=== PATIENT | male | born 1975 | race Caucasian/White ===

== ENCOUNTER 2018-12-30 09:07 | Outpatient (CLI) | payer OTHER ==
--- NOTE | 2018-12-30 11:39 | CT ---
CT ABDOMEN AND PELVIS WITH IV CONTRAST: DATE: 12/30/2018. PROVIDED CLINICAL HISTORY: Generalized abdominal pain and abnormal weight loss. FINDINGS: Visualized lung bases are free of significant opacity. There is a 2.1 cm cystic structure at the inferior pole of the right kidney laterally with numerous i nternal calcifications measuring 2-3 mm. There is renal cortical volume loss immediately adjacent to this. The solid abdominal organs demonstrate an otherwise unremarkable CT appearance. There is no bowel dilatation, inflammatory fat stranding, free fluid, or lymph node enlargement appar ent. Changes of abdominal wall mesh hernia repair are demonstrated. Sigmoid colonic diverticulosis without CT evidence for diverticulitis. The osseous structures demonstrate no concerning osteoblastic or osteolytic lesions. IMPRESSION: 1. 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 Urologic consu ltation is recommended. 2. Sigmoid colonic diverticulosis without CT evidence for diverticulitis. POS: [facility]
[2018-12-30] MEDS ORDERED: ISOVUE-370 76%-LOCM 1 ML ONE (12:46)
== END 2018-12-30 09:08 | disposition home or self-care (01) ==
LOC: BICCT 09:07
PROVIDERS: ATTEND Family Medicine
DX: R10.84 Generalized abdominal pain (principal); R63.4 Abnormal weight loss; K57.30 Diverticulosis of large intestine without perforation or abscess without bleeding
CPT/HCPCS: 74177

== ENCOUNTER 2019-05-04 08:15 | Outpatient (CLI) | payer OTHER ==
--- NOTE | 2019-05-04 10:01 | MRI ---
MRI THORACIC SPINE WITHOUT CONTRAST: HISTORY: Mid back pain with a water balloon jiggling feeling inside the spine. COMPARISON: None. FINDINGS: Appropriate T1 marrow signal intensity of the thoracic vertebrae. Thoracic spine vertebral body heigh t is maintained. No fracture. No significant STIR hyperintensity to suggest vertebral body edema or ligamentous injury. The visualized mediastinum, lung parenchyma and paraspinal soft tissues have appropriate signal inten sity. The visualized solid organs have appropriate signal intensity. The thoracic cord has a normal size and signal intensity. No cord malacia. No cord expansion. T1-T2: No significant central canal stenosis or significant neural foraminal narrowing. T2-T3, T3-T4, T4-T5, T5-T6: No significant central canal stenosis or significant neural foraminal elvis rowing. T6-T7: Minimal broad-based disc bulge without significant central canal stenosis. Bilaterally the sharyn ral foramina are patent. T7-T8: Broad-based disc bulge abuts the thecal sac. Small left paracentral component does contact the left hemicord with mild cord deformity. Mild central canal stenosis. No cord hyperintensity. Bilaterally, the neural foramina are patent. T8-T9: Small left paracentral disc bulge contacts the thecal sac. No significant central canal stenos is. Bilaterally, the neural foramina are patent. T9-T10 through T12-L1: No significant central canal stenosis or significant neural foraminal narrowin g IMPRESSION: Degenerative changes of the thoracic spine, as described above. Transcribed Date/Time: 05/04/2019 10:10 AM
== END 2019-05-04 08:16 | disposition home or self-care (01) ==
LOC: BICMRI 08:15
PROVIDERS: ATTEND Family Medicine
DX: R07.9 Chest pain, unspecified (principal); M47.814 Spondylosis without myelopathy or radiculopathy, thoracic region
CPT/HCPCS: 72146

== ENCOUNTER 2020-08-23 08:24 | Outpatient (CLI) | payer OTHER | END 2020-08-23 08:25 | disposition home or self-care (01) | LOC: CT 08:24 | PROVIDERS: ATTEND Family Medicine | DX: R55 Syncope and collapse (principal) | CPT/HCPCS: 70450 ==

== ENCOUNTER 2020-08-23 17:20 | Inpatient (IN) | payer SELFPAY ==
[2020-08-23] MEDS ORDERED: Loperamide HCl 2 MG CAP PO PRN (19:37)
[2020-08-23] MEDS ORDERED: Zolpidem Tartrate 5 MG TAB PO PRN (19:37)
[2020-08-23] MEDS ORDERED: Guaifenesin DM 100-10/5 ML UDCUP PO PRN (19:37)
[2020-08-23] MEDS ORDERED: Ondansetron ODT 4 MG TAB PO PRN (19:37)
[2020-08-23] MEDS ORDERED: HYDROcodone/Acetaminophen 5/325 mg Tablet PO PRN (19:37)
[2020-08-23] MEDS ORDERED: Ondansetron PF 4 MG/2 ML Vial IVP PRN (19:37)
[2020-08-23] MEDS ORDERED: Bisacodyl 10 MG SUPP PR PRN (19:37)
[2020-08-23] MEDS ORDERED: Senokot S 8.6-50 MG TAB PO PRN (19:37)
[2020-08-23] MEDS ORDERED: Acetaminophen 325 MG TAB PO PRN (19:37)
[2020-08-23] MEDS ORDERED: Calcium Carbonate 500 MG ChewTAB PO PRN (19:37)
[2020-08-23 20:21] LABS: #Basophils 0.1 thou/uL (0.0-0.2); #Eosinphils 0.1 thou/uL (0.0-0.7); #Lymphocytes 2.5 thou/uL (1.20-3.40); #Monocytes 0.8 thou/uL (0.11-0.59); #Neutrophils 9.2 thou/uL (1.40-6.50); %Basophils 0.5 % (0.0-1.0); %Eosinophils 0.6 % (0.0-10.0); %Lymphocytes 19.8 % (21.0-51.0); %Neutrophils 73.1 % (42.0-75.0); Hemoglobin 15.3 g/dL (14.0-18.0); Mean Corpuscular HGB CONC 33.4 g/dL (32.0-36.0); Mean Corpuscular Hemoglobin 31.7 pg (27.0-31.0); Mean Corpuscular Volume 94.9 fL (78.0-98.0); Mean Platelet Volume 7.8 fL (7.4-10.4); Platelet Count 243 thou/uL (130-400); RBC Distribution Width 11.2 % (11.5-14.5); Red Blood Cell (RBC) Count 4.83 mill/uL (4.70-6.10); White Blood Cell (WBC) Count 12.6 thou/uL (4.8-10.8)
[2020-08-23 20:29] LABS: INR-International Normal Ratio 1.1; PTT 35.9 sec (22.9-36.1); Prothrombin Time 13.9 sec (12.0-14.7)
[2020-08-23 20:44] LABS: ALT (SGPT) 17 U/L (8-55); AST (SGOT) 14 U/L (5-34); Albumin 4.2 g/dL (3.5-5.0); Alkaline Phosphatase 68 U/L (40-110); Anion Gap 13 mmol/L (10-20); BUN (Urea Nitrogen) 17 mg/dL (8.9-20.6); Bilirubin, Total 0.6 mg/dL (0.2-1.2); Calc. Creatinine Clearance 0 mL/min (70-130); Calcium 9.4 mg/dL (7.8-10.44); Carbon Dioxide 27 mmol/L (22-29); Chloride 103 mmol/L (98-107); Globulin 3.1 g/dL (2.4-3.5); Glucose 93 mg/dL (70-105); Protein, Total 7.3 g/dL (6.0-8.3); Sodium 139 mmol/L (136-145)
[2020-08-23] MEDS ORDERED: Famotidine 20 MG TAB PO SCH (21:00)
[2020-08-23 22:02] VITALS: BMI 21.2
[2020-08-24] MEDS ORDERED: Famotidine 20 MG TAB ONE (00:42)
[2020-08-24 02:03] LABS: SARS-CoV-2 NAA Rapid Test Not Detected (NotDetected)
== END 2020-08-24 08:35 | disposition short-term general hospital (02) | DRG 644 ==
LOC: ERS 17:20 → ERHOLD 19:37
PROVIDERS: ADMIT Internal Medicine; ATTEND Family Medicine
DX: D49.7 Neoplasm of unspecified behavior of endocrine glands and other parts of nervous system (principal); G91.1 Obstructive hydrocephalus
CPT/HCPCS: 0240U; 36415; 80053; 82105; 84702; 85025; 85610; 85730; 87635; U0003; U0005

== ENCOUNTER 2021-02-10 15:32 | Emergency (ER) | payer SELFPAY ==
[2021-02-10 16:21] LABS: #Basophils 0.1 thou/uL (0.0-0.2); #Eosinphils 0.1 thou/uL (0.0-0.7); #Lymphocytes 2.4 thou/uL (1.20-3.40); #Monocytes 0.6 thou/uL (0.11-0.59); #Neutrophils 8.2 thou/uL (1.40-6.50); %Basophils 0.4 % (0.0-1.0); %Eosinophils 0.5 % (0.0-10.0); %Lymphocytes 20.9 % (21.0-51.0); %Monocytes 5.4 % (0.0-10.0); %Neutrophils 72.8 % (42.0-75.0); Hemoglobin 15.7 g/dL (14.0-18.0); Mean Corpuscular HGB CONC 34.5 g/dL (32.0-36.0); Mean Corpuscular Hemoglobin 32.4 pg (27.0-31.0); Mean Corpuscular Volume 93.8 fL (78.0-98.0); Mean Platelet Volume 8.2 fL (7.4-10.4); Platelet Count 233 thou/uL (130-400); RBC Distribution Width 11.6 % (11.5-14.5); Red Blood Cell (RBC) Count 4.86 mill/uL (4.70-6.10); White Blood Cell (WBC) Count 11.3 thou/uL (4.8-10.8)
[2021-02-10 16:29] LABS: INR-International Normal Ratio 0.9; PTT 33.6 sec (22.9-36.1); Prothrombin Time 12.6 sec (12.0-14.7)
[2021-02-10 16:36] LABS: ALT (SGPT) 18 U/L (8-55); AST (SGOT) 17 U/L (5-34); Albumin 4.5 g/dL (3.5-5.0); Alkaline Phosphatase 65 U/L (40-110); Anion Gap 18 mmol/L (10-20); BUN (Urea Nitrogen) 22 mg/dL (8.9-20.6); Bilirubin, Total 0.4 mg/dL (0.2-1.2); Calc. Creatinine Clearance 0 mL/min (70-130); Calcium 9.5 mg/dL (7.8-10.44); Carbon Dioxide 21 mmol/L (22-29); Chloride 104 mmol/L (98-107); Globulin 2.9 g/dL (2.4-3.5); Glucose 108 mg/dL (70-105); Potassium 4.1 mmol/L (3.5-5.1); Protein, Total 7.4 g/dL (6.0-8.3); Sodium 139 mmol/L (136-145)
== END 2021-02-10 18:24 | disposition home or self-care (01) ==
LOC: ERS 15:32
DX: R56.9 Unspecified convulsions (principal); D49.6 Neoplasm of unspecified behavior of brain; Z87.891 Personal history of nicotine dependence
CPT/HCPCS: 36415; 70450; 80053; 85025; 85610; 85730; 93005

== ENCOUNTER 2021-03-04 13:28 | Inpatient (IN) | payer SELFPAY ==
[2021-03-04] MEDS ORDERED: Lorazepam 2 MG/ML VIAL ONE (13:41)
[2021-03-04 14:48] LABS: #Lymphocytes 0.9 thou/uL (1.20-3.40); #Monocytes 0.4 thou/uL (0.11-0.59); #Neutrophils 6.1 thou/uL (1.40-6.50); %Basophils 0.4 % (0.0-1.0); %Eosinophils 0.6 % (0.0-10.0); %Lymphocytes 12.3 % (21.0-51.0); %Monocytes 4.7 % (0.0-10.0); %Neutrophils 82.1 % (42.0-75.0); Hemoglobin 15.2 g/dL (14.0-18.0); Mean Corpuscular HGB CONC 33.9 g/dL (32.0-36.0); Mean Corpuscular Hemoglobin 31.8 pg (27.0-31.0); Mean Corpuscular Volume 93.8 fL (78.0-98.0); Mean Platelet Volume 7.6 fL (7.4-10.4); Platelet Count 245 thou/uL (130-400); RBC Distribution Width 11.6 % (11.5-14.5); Red Blood Cell (RBC) Count 4.77 mill/uL (4.70-6.10); White Blood Cell (WBC) Count 7.4 thou/uL (4.8-10.8)
[2021-03-04 16:07] LABS: ALT (SGPT) 13 U/L (8-55); AST (SGOT) 13 U/L (5-34); Albumin 4.4 g/dL (3.5-5.0); Alkaline Phosphatase 84 U/L (40-110); Anion Gap 14 mmol/L (10-20); BUN (Urea Nitrogen) 13 mg/dL (8.9-20.6); Bilirubin, Total 0.6 mg/dL (0.2-1.2); Calc. Creatinine Clearance 0 mL/min (70-130); Calcium 9.7 mg/dL (7.8-10.44); Carbon Dioxide 26 mmol/L (22-29); Chloride 105 mmol/L (98-107); Globulin 3.1 g/dL (2.4-3.5); Glucose 103 mg/dL (70-105); Potassium 3.8 mmol/L (3.5-5.1); Protein, Total 7.5 g/dL (6.0-8.3); Sodium 141 mmol/L (136-145)
[2021-03-04] MEDS ORDERED: Acetaminophen 500 MG TAB ONE (16:38)
[2021-03-04] MEDS ORDERED: Morphine 4 MG/ML VIAL ONE (18:55)
[2021-03-04] MEDS ORDERED: Dexamethasone 10 MG/ML VIAL ONE ×2 (21:30→21:52)
[2021-03-04] MEDS ORDERED: Ondansetron PF 4 MG/2 ML Vial IVP PRN (21:45)
[2021-03-04] MEDS ORDERED: Acetaminophen 325 MG TAB PO PRN (21:45)
[2021-03-04] MEDS ORDERED: HYDROcodone/Acetaminophen 10/325 mg Tablet ONE (21:50)
[2021-03-04] MEDS ORDERED: levETIRAcetam 500 MG TAB PO SCH ×2 (22:00→22:45)
[2021-03-04] MEDS ORDERED: levETIRAcetam in NS 1,500 MG in Premix Bag 1 BAG IVPB SCH (22:00)
[2021-03-05 03:17] LABS: SARS-CoV-2 NAA Rapid Test Not Detected (NotDetected)
[2021-03-05 05:54] LABS: #Lymphocytes 1.1 thou/uL (1.20-3.40); #Monocytes 0.1 thou/uL (0.11-0.59); #Neutrophils 3.7 thou/uL (1.40-6.50); %Basophils 0.5 % (0.0-1.0); %Eosinophils 0.1 % (0.0-10.0); %Lymphocytes 21.9 % (21.0-51.0); %Monocytes 1.9 % (0.0-10.0); %Neutrophils 75.7 % (42.0-75.0); Hemoglobin 14.7 g/dL (14.0-18.0); Mean Corpuscular HGB CONC 33.9 g/dL (32.0-36.0); Mean Corpuscular Hemoglobin 31.8 pg (27.0-31.0); Mean Corpuscular Volume 93.8 fL (78.0-98.0); Mean Platelet Volume 7.4 fL (7.4-10.4); Platelet Count 247 thou/uL (130-400); RBC Distribution Width 11.5 % (11.5-14.5); Red Blood Cell (RBC) Count 4.62 mill/uL (4.70-6.10); White Blood Cell (WBC) Count 4.8 thou/uL (4.8-10.8)
[2021-03-05 06:19] LABS: Anion Gap 12 mmol/L (10-20); BUN (Urea Nitrogen) 15 mg/dL (8.9-20.6); Calc. Creatinine Clearance 134 mL/min (70-130); Calcium 9.9 mg/dL (7.8-10.44); Carbon Dioxide 28 mmol/L (22-29); Chloride 106 mmol/L (98-107); Glucose 122 mg/dL (70-105); Potassium 4.7 mmol/L (3.5-5.1); Sodium 141 mmol/L (136-145)
[2021-03-05] MEDS ORDERED: Dexamethasone 4 mg/ml Vial ONE (08:34)
[2021-03-05] MEDS: Dexamethasone 4 mg/ml Vial SLOW IVP SCH ×2 (08:46→19:27)
[2021-03-05] MEDS: HYDROcodone/Acetaminophen 7.5/325 mg Tablet PO PRN (08:46)
[2021-03-05] MEDS: levETIRAcetam 500 MG TAB PO SCH ×2 (11:08→20:43)
[2021-03-05 15:46] VITALS: BMI 21.7
[2021-03-05] MEDS ORDERED: Dexamethasone 4 mg/ml Vial SLOW IVP SCH (23:59)
[2021-03-06] MEDS: Dexamethasone 4 mg/ml Vial SLOW IVP SCH ×4 (04:36→21:07)
[2021-03-06 05:06] LABS: #Monocytes 0.2 thou/uL (0.11-0.59); #Neutrophils 8.1 thou/uL (1.40-6.50); %Basophils 0.1 % (0.0-1.0); %Eosinophils 0.4 % (0.0-10.0); %Lymphocytes 10.5 % (21.0-51.0); %Monocytes 1.8 % (0.0-10.0); %Neutrophils 87.2 % (42.0-75.0); Mean Corpuscular Hemoglobin 31.8 pg (27.0-31.0); Mean Corpuscular Volume 93.4 fL (78.0-98.0); Mean Platelet Volume 8.2 fL (7.4-10.4); Platelet Count 232 thou/uL (130-400); RBC Distribution Width 11.4 % (11.5-14.5); Red Blood Cell (RBC) Count 4.41 mill/uL (4.70-6.10); White Blood Cell (WBC) Count 9.3 thou/uL (4.8-10.8)
[2021-03-06 05:25] LABS: Anion Gap 11 mmol/L (10-20); BUN (Urea Nitrogen) 11 mg/dL (8.9-20.6); Calc. Creatinine Clearance 117 mL/min (70-130); Calcium 9.7 mg/dL (7.8-10.44); Carbon Dioxide 28 mmol/L (22-29); Chloride 104 mmol/L (98-107); Glucose 142 mg/dL (70-105); Potassium 4.3 mmol/L (3.5-5.1); Sodium 139 mmol/L (136-145)
[2021-03-06] MEDS ORDERED: FLU VACC QS2021-22(6MOS UP)/PF 60 MCG/0.5 ML SYRINGE IM ONE (09:00)
[2021-03-06] MEDS: levETIRAcetam 500 MG TAB PO SCH ×2 (10:23→21:08)
[2021-03-06] MEDS: HYDROcodone/Acetaminophen 7.5/325 mg Tablet PO PRN (14:36)
[2021-03-06] MEDS ORDERED: oxyCODONE/Acetaminophen 5 mg/325 mg Tablet PO PRN (16:41)
[2021-03-06] MEDS ORDERED: Polyethylene Glycol 3350 17 GM Packet PO PRN (19:26)
[2021-03-06] MEDS: Baclofen 10 MG TAB PO SCH (21:07)
[2021-03-07 07:32] LABS: #Lymphocytes 2.5 thou/uL (1.20-3.40); #Monocytes 0.6 thou/uL (0.11-0.59); #Neutrophils 9.5 thou/uL (1.40-6.50); %Basophils 0.2 % (0.0-1.0); %Eosinophils 0.1 % (0.0-10.0); %Lymphocytes 19.7 % (21.0-51.0); Hemoglobin 13.9 g/dL (14.0-18.0); Mean Corpuscular HGB CONC 33.5 g/dL (32.0-36.0); Mean Corpuscular Hemoglobin 31.7 pg (27.0-31.0); Mean Corpuscular Volume 94.5 fL (78.0-98.0); Mean Platelet Volume 8.1 fL (7.4-10.4); Platelet Count 228 thou/uL (130-400); RBC Distribution Width 11.5 % (11.5-14.5); White Blood Cell (WBC) Count 12.6 thou/uL (4.8-10.8)
[2021-03-07 07:50] LABS: Anion Gap 10 mmol/L (10-20); BUN (Urea Nitrogen) 14 mg/dL (8.9-20.6); Calc. Creatinine Clearance 122 mL/min (70-130); Calcium 9.6 mg/dL (7.8-10.44); Carbon Dioxide 29 mmol/L (22-29); Chloride 106 mmol/L (98-107); Glucose 108 mg/dL (70-105); Potassium 4.1 mmol/L (3.5-5.1); Sodium 141 mmol/L (136-145)
[2021-03-07] MEDS: levETIRAcetam 500 MG TAB PO SCH ×2 (09:29→21:45)
[2021-03-07] MEDS: Baclofen 10 MG TAB PO SCH ×3 (09:30→21:44)
[2021-03-07] MEDS: Dexamethasone 4 MG TAB PO SCH ×2 (09:30→16:39)
[2021-03-07] MEDS ORDERED: Bisacodyl 10 MG SUPP PR PRN (11:51)
[2021-03-07] MEDS: Senokot S 8.6-50 MG TAB PO SCH (21:44)
[2021-03-08 05:29] LABS: #Lymphocytes 2.4 thou/uL (1.20-3.40); #Monocytes 0.6 thou/uL (0.11-0.59); #Neutrophils 6.2 thou/uL (1.40-6.50); %Eosinophils 0.3 % (0.0-10.0); %Lymphocytes 25.8 % (21.0-51.0); %Monocytes 6.3 % (0.0-10.0); %Neutrophils 67.6 % (42.0-75.0); Hemoglobin 14.1 g/dL (14.0-18.0); Mean Corpuscular HGB CONC 33.7 g/dL (32.0-36.0); Mean Corpuscular Hemoglobin 31.7 pg (27.0-31.0); Mean Corpuscular Volume 94.1 fL (78.0-98.0); Mean Platelet Volume 8.1 fL (7.4-10.4); Platelet Count 218 thou/uL (130-400); RBC Distribution Width 11.5 % (11.5-14.5); Red Blood Cell (RBC) Count 4.45 mill/uL (4.70-6.10); White Blood Cell (WBC) Count 9.2 thou/uL (4.8-10.8)
[2021-03-08 05:50] LABS: Anion Gap 12 mmol/L (10-20); BUN (Urea Nitrogen) 12 mg/dL (8.9-20.6); Calc. Creatinine Clearance 121 mL/min (70-130); Calcium 9.4 mg/dL (7.8-10.44); Carbon Dioxide 28 mmol/L (22-29); Chloride 105 mmol/L (98-107); Glucose 107 mg/dL (70-105); Potassium 4.1 mmol/L (3.5-5.1); Sodium 141 mmol/L (136-145)
[2021-03-08] MEDS: Senokot S 8.6-50 MG TAB PO SCH (09:07)
[2021-03-08] MEDS: Baclofen 10 MG TAB PO SCH ×3 (09:07→18:48)
[2021-03-08] MEDS: Dexamethasone 4 MG TAB PO SCH ×2 (09:07→17:26)
[2021-03-08] MEDS: levETIRAcetam 500 MG TAB PO SCH (09:07)
[2021-03-08] MEDS ORDERED: Sodium Chloride 0.9% 250 ML IV SCH (09:15)
[2021-03-08] MEDS ORDERED: NS 0.9% w/ 20 MEQ KCL 1,000 ML/1,000 ML BAG IV SCH (09:15)
[2021-03-08] MEDS ORDERED: Sodium Chloride 0.9% 250 ML IVPB PRN (10:12)
[2021-03-08 15:58] VITALS: BP 108/80; TEMP 98.2
== END 2021-03-08 19:35 | disposition home or self-care (01) | DRG 100 ==
LOC: ERS 13:28 → ERHOLD 21:45 → NEURO 03-05 15:00
PROVIDERS: ADMIT Internal Medicine; ATTEND Internal Medicine
DX: G40.909 Epilepsy, unspecified, not intractable, without status epilepticus (principal); G93.5 Compression of brain; C79.51 Secondary malignant neoplasm of bone; G95.20 Unspecified cord compression; G91.1 Obstructive hydrocephalus; D49.7 Neoplasm of unspecified behavior of endocrine glands and other parts of nervous system; Z20.822 Contact with and (suspected) exposure to COVID-19; R06.6 Hiccough; F12.10 Cannabis abuse, uncomplicated; K59.00 Constipation, unspecified; Z79.891 Long term (current) use of opiate analgesic; Z88.8 Allergy status to other drugs, medicaments and biological substances; Z79.84 Long term (current) use of oral hypoglycemic drugs; Z79.899 Other long term (current) drug therapy
CPT/HCPCS: 36415; 70450; 71045; 72125; 77014; 77290; 77307; 77332; 77334; 80048; 80053; 83735; 84146; 85025; 95816; 95819; 95957; 96365; 96375; J1100; J1953; J2060; J2270; J3480; J8540; U0002

== ENCOUNTER 2021-09-19 13:35 | Emergency (ER) | payer SELFPAY | END 2021-09-19 14:56 | disposition home or self-care (01) | LOC: ERS 13:35 | DX: B02.9 Zoster without complications (principal); H20.00 Unspecified acute and subacute iridocyclitis; Z87.891 Personal history of nicotine dependence | CPT/HCPCS: 99283 ==